=== PATIENT | female | born 1960 | race Caucasian/White ===

== ENCOUNTER 2017-12-13 23:36 | Emergency (ER) | payer SELFPAY ==
[~2017-12-13] VITALS: Ht 160 cm; Wt 86.2 kg
[~2017-12-13 23:36] MED LIST: ALBU90OI INH; ALBU90OI6 INH; AZIT250 PO; BENTYL20 MG PO; CEPH500 PO; CHLO10 PO; CIME400 PO; CIPR500 PO; CODGUAEL PO; CYCL10 PO; DOXY100 PO; DULO30 PO; FENT100TP TOP; FENT25TP TOP; HYDACE5 PO; HYDACE5325 PO; Humulin N100 UNIT/1 SC; INS70/30I SC; INS70/30PN SC; INSN100I SUBQ; INSR10I SC; INSUASPI SC; INSULANI SC; MAGCIT300 PO; MELO7.5 PO; MORP15ER PO; Novolin R100 UNIT/M SC; ONDA4 PO; OXYACE5T PO; PHENA200 PO; PRED20 PO; PROM25 PO; Percocet 5-3251 EACH PO; Prednisone20 MG PO; TRAM50 PO; Zithromax250 MG PO
[2017-12-14 00:49] LABS: BASOPHILS ABSOLUTE AUTO 0.05 K/mm3 (0.00-0.23); BASOPHILS PERCENT AUTO 1 % (0-2); EOSINOPHILS ABSOLUTE AUTO 0.15 K/mm3 (0.00-0.68); EOSINOPHILS PERCENT AUTO 1 % (0-6); Hematocrit 41.5 % (33.0-51.0); Hemoglobin 13.4 g/dL (11.5-16.0); IMMATURE GRAN ABSOLUTE AUTO 0.03 K/mm3 (0.00-0.10); IMMATURE GRAN PERCENT AUTO 0 % (0-1); LYMPHOCYTES ABSOLUTE AUTO 1.56 K/mm3 (0.84-5.20); LYMPHOCYTES PERCENT AUTO 15 % (21-46); MONOCYTES ABSOLUTE AUTO 0.54 K/mm3 (0.16-1.47); MONOCYTES PERCENT AUTO 5 % (4-13); Mean Corpuscular HGB 25.2 pg (26.0-34.0); Mean Corpuscular HGB Conc 32.3 g/dL (31.5-36.5); Mean Corpuscular Volume 78 fL (80-100); Mean Platelet Volume 9.6 fL (9.1-12.4); NEUTROPHILS ABSOLUTE AUTO 8.37 K/mm3 (1.96-9.15); NEUTROPHILS PERCENT AUTO 78 % (41-73); Platelet Count 437 K/mm3 (150-400); RDW Coefficient Variation 16.1 % (11.7-14.2); RDW Standard Deviation 45.6 fL (35.1-46.3); Red Blood Cell Count 5.32 M/mm3 (3.80-5.20)
[2017-12-14 01:09] LABS: Alanine Aminotransfer (ALT/SGP 24 U/L (12-78); Albumin, Blood 3.2 g/dL (3.4-5.0); Albumin/Globulin Ratio 0.6 (0.8-1.8); Alk Phos 134 U/L (50-136); Anion Gap 9 mmol/L (6-16); Aspartate Aminotrans (AST/SGOT 15 U/L (12-37); Bilirubin, Total 0.4 mg/dL (0.1-1.0); Blood Urea Nitrogen 5 mg/dL (8-24); Bun/Creatinine Ratio 12.1 (12.0-20.0); CO2, Blood 29 mmol/L (21-32); Calcium, Blood 9.3 mg/dL (8.5-10.1); Chloride, Blood 95 mmol/L (98-108); Creatinine, Blood 0.41 mg/dL (0.40-1.00); Globulin, Blood 5.3 g/dL (2.2-4.0); Glomerular Filtration Rate >60 (60-); Glucose, Blood 161 mg/dL (70-99); Potassium, Blood 3.7 mmol/L (3.5-5.5); Sodium, Blood 133 mmol/L (136-145); Total Protein, Blood 8.5 g/dL (6.4-8.2)
[2017-12-14 04:16] LABS: Source, Urine Clean Catch
[2017-12-14 04:18] LABS: Bilirubin, Urine Neg (Neg); Blood, Urine 1+ (Neg); Glucose Qualitative, Urine 3+ (Neg); Ketones, Urine 2+ (Neg); Leukocyte Esterase, Urine Neg (Neg); Nitrite, Urine Neg (Neg); Protein, Urine 1+ (Neg); Urobilinogen, Urine NORM (Normal)
[2017-12-14 04:23] LABS: Appearance, Urine Clear (Clear); Color, Urine Yellow (P-Yellow)
[2017-12-14 04:24] LABS: Bacteria Mod /hpf; Red Blood Cells, Urine 0-2 /hpf (0-2); Squamous Epithelial Cells Mod /hpf (Few); White Blood Cells, Urine 0-2 /hpf (0-5)
[2017-12-14] MEDS ORDERED: Zofran Odt4 MG PO (06:09)
[2017-12-14] MEDS ORDERED: Norco 5-325 Ta1 EACH PO (06:09)
[2017-12-15] MEDS ORDERED: CEPH500 PO (12:14)
[2017-12-15] MEDS ORDERED: Cleocin HCl300 MG PO ×2 (12:14→12:16)
== END 2017-12-14 06:34 | disposition home or self-care (01) ==
LOC: ER 23:36
PROVIDERS: Emergency Medicine
DX: K57.30 Diverticulosis of large intestine without perforation or abscess without bleeding (principal); E11.9 Type 2 diabetes mellitus without complications; R16.0 Hepatomegaly, not elsewhere classified; F17.210 Nicotine dependence, cigarettes, uncomplicated; Z88.0 Allergy status to penicillin; Z88.2 Allergy status to sulfonamides; Z88.8 Allergy status to other drugs, medicaments and biological substances; Z79.4 Long term (current) use of insulin
CPT/HCPCS: 36415; 74177; 80053; 81001; 83690; 85025; 87086; 96361; 96374; 96375; 96376; 99284; J2405; J3010; J7030; Q9967

== ENCOUNTER 2018-01-05 18:43 | Emergency (ER) | payer OTHER ==
[~2018-01-05] VITALS: Ht 160 cm; Wt 86.2 kg
[~2018-01-05 18:43] MED LIST changes: +Cleocin HCl300 MG PO; +Norco 5-325 Ta1 EACH PO; +Zofran Odt4 MG PO
[2018-01-05] MEDS ORDERED: Vibramycin100 MG PO (20:01)
[2018-01-05] MEDS ORDERED: Cheratussin AC118 ML PO (20:01)
== END 2018-01-05 20:06 | disposition home or self-care (01) ==
LOC: ER 18:43
DX: J18.9 Pneumonia, unspecified organism (principal); Z88.0 Allergy status to penicillin; Z88.2 Allergy status to sulfonamides; Z88.8 Allergy status to other drugs, medicaments and biological substances; Z79.899 Other long term (current) drug therapy; Z79.4 Long term (current) use of insulin; Z79.2 Long term (current) use of antibiotics; E11.9 Type 2 diabetes mellitus without complications; F32.9 Major depressive disorder, single episode, unspecified; F17.210 Nicotine dependence, cigarettes, uncomplicated
CPT/HCPCS: 71046

== ENCOUNTER 2018-03-30 22:35 | Emergency (ER) | payer OTHER ==
[~2018-03-30] VITALS: Ht 160 cm; Wt 88.5 kg
[~2018-03-30 22:35] MED LIST changes: +Cheratussin AC118 ML PO; +Vibramycin100 MG PO
[2018-03-31] MEDS ORDERED: Neurontin 300300 MG PO (01:21)
[2018-03-31] MEDS ORDERED: Naprosyn500 MG PO (01:21)
[2018-03-31] MEDS ORDERED: LIDO700A20 TOP (01:21)
== END 2018-03-31 01:26 | disposition home or self-care (01) ==
LOC: ER 22:35
DX: S39.012A Strain of muscle, fascia and tendon of lower back, initial encounter (principal); M25.551 Pain in right hip; Z88.0 Allergy status to penicillin; Z88.2 Allergy status to sulfonamides; Z88.8 Allergy status to other drugs, medicaments and biological substances; Z79.899 Other long term (current) drug therapy; X58.XXXA Exposure to other specified factors, initial encounter
CPT/HCPCS: 72100; 73502; 82947; 96372; 99283-25; J1885

== ENCOUNTER 2018-11-27 17:19 | Emergency (ER) | payer OTHER ==
[~2018-11-27] VITALS: Ht 160 cm; Wt 99.8 kg
[~2018-11-27 17:19] MED LIST changes: +LIDO700A20 TOP; +Naprosyn500 MG PO; +Neurontin 300300 MG PO
[2018-11-27] MEDS ORDERED: Percocet 5-3251 EACH PO (18:51)
== END 2018-11-27 19:17 | disposition home or self-care (01) ==
LOC: ER 17:19
DX: S22.32XA Fracture of one rib, left side, initial encounter for closed fracture (principal); F32.9 Major depressive disorder, single episode, unspecified; E11.9 Type 2 diabetes mellitus without complications; G89.29 Other chronic pain; F17.210 Nicotine dependence, cigarettes, uncomplicated; Z88.0 Allergy status to penicillin; Z88.2 Allergy status to sulfonamides; Z88.8 Allergy status to other drugs, medicaments and biological substances; Z79.4 Long term (current) use of insulin; Z79.899 Other long term (current) drug therapy; W18.30XA Fall on same level, unspecified, initial encounter
CPT/HCPCS: 71100; 99283-25; A9270-GY

== ENCOUNTER → 2020-01-16 | Outpatient (CLI) | payer OTHER ==
[2020-01-16 18:48] LABS: BASOPHILS ABSOLUTE AUTO 0.04 K/mm3 (0.00-0.23); BASOPHILS PERCENT AUTO 1 % (0-2); EOSINOPHILS ABSOLUTE AUTO 0.28 K/mm3 (0.00-0.68); EOSINOPHILS PERCENT AUTO 4 % (0-6); Hematocrit 32.1 % (33.0-51.0); Hemoglobin 9.6 g/dL (11.5-16.0); IMMATURE GRAN ABSOLUTE AUTO 0.02 K/mm3 (0.00-0.10); IMMATURE GRAN PERCENT AUTO 0 % (0-1); LYMPHOCYTES ABSOLUTE AUTO 1.65 K/mm3 (0.84-5.20); LYMPHOCYTES PERCENT AUTO 24 % (21-46); MONOCYTES ABSOLUTE AUTO 0.43 K/mm3 (0.16-1.47); MONOCYTES PERCENT AUTO 6 % (4-13); Mean Corpuscular HGB 22.1 pg (26.0-34.0); Mean Corpuscular HGB Conc 29.9 g/dL (31.5-36.5); Mean Corpuscular Volume 74 fL (80-100); Mean Platelet Volume 9.4 fL (9.1-12.4); NEUTROPHILS ABSOLUTE AUTO 4.57 K/mm3 (1.96-9.15); NEUTROPHILS PERCENT AUTO 65 % (41-73); Platelet Count 386 K/mm3 (150-400); RDW Coefficient Variation 18.2 % (11.7-14.2); RDW Standard Deviation 48.1 fL (35.1-46.3); Red Blood Cell Count 4.35 M/mm3 (3.80-5.20); White Blood Cell Count 6.99 K/mm3 (4.00-11.30)
[2020-01-16 19:00] LABS: Alanine Aminotransfer (ALT/SGP 18 U/L (12-78); Albumin, Blood 3.3 g/dL (3.4-5.0); Albumin/Globulin Ratio 0.8 (0.8-1.8); Alk Phos 143 U/L (40-126); Anion Gap 8 mmol/L (6-16); Aspartate Aminotrans (AST/SGOT 20 U/L (12-37); Bilirubin, Total 0.2 mg/dL (0.1-1.0); Blood Urea Nitrogen 8 mg/dL (8-24); Bun/Creatinine Ratio 12.5 (12.0-20.0); CO2, Blood 29 mmol/L (21-32); Calcium, Blood 8.1 mg/dL (8.5-10.1); Chloride, Blood 98 mmol/L (98-108); Creatinine, Blood 0.64 mg/dL (0.40-1.00); Globulin, Blood 4.3 g/dL (2.2-4.0); Glomerular Filtration Rate >60 (60-); Glucose, Blood 298 mg/dL (70-99); Potassium, Blood 4.3 mmol/L (3.5-5.5); Sodium, Blood 135 mmol/L (136-145); Total Protein, Blood 7.6 g/dL (6.4-8.2)
== END | disposition home or self-care (01) ==
LOC: LAB SHORT 18:45 → LAB EV 18:45
PROVIDERS: Physician Assistant
DX: E10.9 Type 1 diabetes mellitus without complications (principal)
CPT/HCPCS: 80053; 83036; 83690; 85025

== ENCOUNTER → 2020-04-30 | Outpatient (CLI) | payer OTHER ==
[~2020-04-30] MED LIST changes: +ACET325 PO; +ATIVAN0.5 MG PO; +CEFP200 PO; +CLON.1 PO; +Cymbalta30 MG PO; +GUAI600T33 PO; +HUMALOG KW100 UNIT/1 SC; +HUMULIN N100 UNIT/4 SC; +HUMULIN R100 UNIT/1 SC; -Humulin N100 UNIT/1 SC; +KLOR-CON M1010 MEQ PO; +LISI5 PO; +LOPE2C PO; +MAGNESIUM OXID500 MG PO; +NEURONTIN300 MG PO; -Novolin R100 UNIT/M SC; +OMEP20ER; +PROBIOTIC1 EA10 PO; +Seroquel Xr50 MG PO; +TRAZ50; +TRAZ50 PO
== END ==
LOC: LAB SHORT 11:20 → LAB EV 11:20
DX: N39.0 Urinary tract infection, site not specified (principal)
CPT/HCPCS: 87086

== ENCOUNTER 2020-05-30 05:32 | Day surgery (SDC) | payer OTHER ==
[~2020-05-30] VITALS: Ht 160 cm; Wt 84.0 kg
[~2020-05-30 05:32] MED LIST changes: +FLUT1DIS2; +SUBOXONE 8 MG-1 EACH SL
[2020-05-30] MEDS ORDERED: TOPROL XL25 MG PO (09:47)
[2020-05-30] MEDS ORDERED: FURO40 PO (09:48)
[2020-05-30] MEDS ORDERED: Aspir 8181 MG PO (09:49)
== END 2020-05-30 11:30 | disposition home or self-care (01) ==
LOC: MHTC 05:32
PROC: 4A023N8 Measurement of Cardiac Sampling and Pressure, Bilateral, Percutaneous Approach (ICD-10-PCS; principal; 2020-05-30)
PROC: B201YZZ Plain Radiography of Multiple Coronary Arteries using Other Contrast (ICD-10-PCS; principal; 2020-05-30)
DX: I25.10 Atherosclerotic heart disease of native coronary artery without angina pectoris (principal); I27.20 Pulmonary hypertension, unspecified; E11.9 Type 2 diabetes mellitus without complications; E78.5 Hyperlipidemia, unspecified; J44.9 Chronic obstructive pulmonary disease, unspecified; F32.9 Major depressive disorder, single episode, unspecified; F17.210 Nicotine dependence, cigarettes, uncomplicated; E78.00 Pure hypercholesterolemia, unspecified; Z79.4 Long term (current) use of insulin; Z88.1 Allergy status to other antibiotic agents; Z88.0 Allergy status to penicillin; Z88.2 Allergy status to sulfonamides; Z79.899 Other long term (current) drug therapy; I08.3 Combined rheumatic disorders of mitral, aortic and tricuspid valves; M19.90 Unspecified osteoarthritis, unspecified site; G43.909 Migraine, unspecified, not intractable, without status migrainosus; M79.7 Fibromyalgia; D64.9 Anemia, unspecified; E03.9 Hypothyroidism, unspecified; F11.10 Opioid abuse, uncomplicated; D32.9 Benign neoplasm of meninges, unspecified
CPT/HCPCS: 76937; 82947; 93460; 99152; C1769; C1894; J1644; J2250; J3010; J7030; J7050; Q9967

== ENCOUNTER → 2020-07-16 | Outpatient (CLI) | payer OTHER ==
[~2020-07-16] MED LIST changes: +Aspir 8181 MG PO; +FURO40 PO; +TOPROL XL25 MG PO
[2020-07-16 18:40] LABS: BASOPHILS ABSOLUTE AUTO 0.04 K/mm3 (0.00-0.23); BASOPHILS PERCENT AUTO 1 % (0-2); EOSINOPHILS ABSOLUTE AUTO 0.21 K/mm3 (0.00-0.68); EOSINOPHILS PERCENT AUTO 3 % (0-6); Hematocrit 28.3 % (33.0-51.0); IMMATURE GRAN ABSOLUTE AUTO 0.03 K/mm3 (0.00-0.10); IMMATURE GRAN PERCENT AUTO 0 % (0-1); LYMPHOCYTES ABSOLUTE AUTO 1.61 K/mm3 (0.84-5.20); LYMPHOCYTES PERCENT AUTO 22 % (21-46); MONOCYTES ABSOLUTE AUTO 0.61 K/mm3 (0.16-1.47); MONOCYTES PERCENT AUTO 8 % (4-13); Mean Corpuscular HGB 19.1 pg (26.0-34.0); Mean Corpuscular HGB Conc 28.3 g/dL (31.5-36.5); Mean Corpuscular Volume 68 fL (80-100); Mean Platelet Volume 8.7 fL (9.1-12.4); NEUTROPHILS ABSOLUTE AUTO 4.92 K/mm3 (1.96-9.15); NEUTROPHILS PERCENT AUTO 66 % (41-73); Platelet Count 462 K/mm3 (150-400); RDW Coefficient Variation 18.1 % (11.7-14.2); Red Blood Cell Count 4.19 M/mm3 (3.80-5.20); White Blood Cell Count 7.42 K/mm3 (4.00-11.30)
[2020-07-16 19:35] LABS: Alanine Aminotransfer (ALT/SGP 41 U/L (12-78); Albumin, Blood 3.5 g/dL (3.4-5.0); Albumin/Globulin Ratio 0.7 (0.8-1.8); Alk Phos 220 U/L (50-136); Anion Gap 5 mmol/L (6-16); Aspartate Aminotrans (AST/SGOT 38 U/L (12-37); Bilirubin, Total 0.2 mg/dL (0.1-1.0); Blood Urea Nitrogen 12 mg/dL (8-24); CO2, Blood 32 mmol/L (21-32); Calcium, Blood 9.2 mg/dL (8.5-10.1); Chloride, Blood 94 mmol/L (98-108); Creatinine, Blood 0.52 mg/dL (0.40-1.00); Globulin, Blood 4.7 g/dL (2.2-4.0); Glomerular Filtration Rate >60 (60-); Glucose, Blood 275 mg/dL (70-99); Sodium, Blood 131 mmol/L (136-145); Total Protein, Blood 8.2 g/dL (6.4-8.2)
== END ==
LOC: LAB EV 18:33 → LAB SHORT 18:33
PROVIDERS: Physician Assistant
DX: N18.30 Chronic kidney disease, stage 3 unspecified (principal); D63.1 Anemia in chronic kidney disease; R59.1 Generalized enlarged lymph nodes
CPT/HCPCS: 36415; 80053; 85025

== ENCOUNTER 2020-09-04 07:00 | Day surgery (SDC) | payer OTHER ==
[~2020-09-04] VITALS: Ht 160 cm; Wt 96.1 kg
[~2020-09-04 07:00] MED LIST changes: +BISOPROLOL-HCT1 EACH PO; +CYMBALTA30 MG PO; +FURO20 PO; +MELA3 PO; +MULTIPLE VITAM1 EACH PO; +POTASSIUM GLUCO99 M1 PO
[2020-09-04] MEDS ORDERED: CIME400 PO (07:16)
== END 2020-09-04 09:20 | disposition home or self-care (01) ==
LOC: ORSCSDS 07:00
PROVIDERS: Ophthalmology
PROC: 08RJ3JZ Replacement of Right Lens with Synthetic Substitute, Percutaneous Approach (ICD-10-PCS; principal; 2020-09-04 08:00)
DX: H25.11 Age-related nuclear cataract, right eye (principal); I10 Essential (primary) hypertension; E78.5 Hyperlipidemia, unspecified; J44.9 Chronic obstructive pulmonary disease, unspecified; F17.210 Nicotine dependence, cigarettes, uncomplicated; G47.33 Obstructive sleep apnea (adult) (pediatric); I25.10 Atherosclerotic heart disease of native coronary artery without angina pectoris; I25.2 Old myocardial infarction; E10.69 Type 1 diabetes mellitus with other specified complication; Z79.4 Long term (current) use of insulin; Z79.899 Other long term (current) drug therapy
CPT/HCPCS: 82947; J2001; J2250; J3010; J3301; J7040; V2632

== ENCOUNTER 2020-10-11 16:45 | Emergency (ER) | payer OTHER ==
[~2020-10-11] VITALS: Ht 160 cm; Wt 98.0 kg
[~2020-10-11 16:45] MED LIST changes: +HUMULIN N100 UNIT/1 SC; -OMEP20ER; +OMEP20ER PO
[2021-01-22] MEDS ORDERED: BISOPROLOL-HCT1 EACH PO (11:25)
[2021-01-22] MEDS ORDERED: ASPIR 8181 M1 PO (11:25)
[2021-01-22] MEDS ORDERED: CIME400 PO (11:26)
[2021-01-22] MEDS ORDERED: FAMO20 PO (11:27)
[2021-01-22] MEDS ORDERED: BENADRYL25 MG PO (11:27)
[2021-01-22] MEDS ORDERED: FURO20 PO (11:29)
[2021-01-22] MEDS ORDERED: HUMULIN R100 UNIT/2 SC (11:30)
[2021-01-22] MEDS ORDERED: LISI20 PO (11:30)
[2021-01-22] MEDS ORDERED: PSEUDOEPHEDRINE30 M1 PO (11:33)
== END 2020-10-11 21:53 | disposition home or self-care (01) ==
LOC: ER 16:45
DX: D50.9 Iron deficiency anemia, unspecified (principal); J44.9 Chronic obstructive pulmonary disease, unspecified; E78.5 Hyperlipidemia, unspecified; I10 Essential (primary) hypertension; E11.40 Type 2 diabetes mellitus with diabetic neuropathy, unspecified; Z79.4 Long term (current) use of insulin; Z79.82 Long term (current) use of aspirin; Z79.899 Other long term (current) drug therapy; Z88.0 Allergy status to penicillin; Z88.1 Allergy status to other antibiotic agents; Z88.2 Allergy status to sulfonamides
CPT/HCPCS: 36415; 86850; 86900; 86901; 93005; 93010; 99283-25

== ENCOUNTER 2020-10-16 00:11 | Day surgery (SDC) | payer OTHER ==
--- NOTE | 2020-10-16 07:57 | NUR ---
INSP WHEEZE RUL PRE TRANSFUSION, DENIES SOB. PT SMOKES CIGS
[2020-10-16] MEDS ORDERED: ERYT.5TO RIGHTEYE (08:18)
[2020-10-16] MEDS ORDERED: FERSU300 PO (08:19)
[2020-10-16] MEDS ORDERED: KETOROLAC TROMET5 M3 RIGHTEYE (08:23)
[2020-10-16] MEDS ORDERED: OCUFLOX5 M3 RIGHTEYE (08:28)
[2020-10-16] MEDS ORDERED: PREDNISOLO15 MG/5 ML PO (08:31)
[2020-10-16] MEDS ORDERED: ASCO500 PO (08:32)
[2020-10-16] MEDS ORDERED: MAGCIT300 (08:33)
[2020-10-16] MEDS ORDERED: MAGNESIUM CITR100 MG PO (08:34)
[2020-10-16] MEDS ORDERED: NARCAN4 M1 (08:36)
[2020-10-16] MEDS ORDERED: Glucagon Emergen1 MG (08:37)
[2021-01-22] MEDS ORDERED: ASPIR 8181 M1 PO (11:25)
[2021-01-22] MEDS ORDERED: BISOPROLOL-HCT1 EACH PO (11:25)
[2021-01-22] MEDS ORDERED: CIME400 PO (11:26)
[2021-01-22] MEDS ORDERED: BENADRYL25 MG PO (11:27)
[2021-01-22] MEDS ORDERED: FAMO20 PO (11:27)
[2021-01-22] MEDS ORDERED: FURO20 PO (11:29)
[2021-01-22] MEDS ORDERED: LISI20 PO (11:30)
[2021-01-22] MEDS ORDERED: HUMULIN R100 UNIT/2 SC (11:30)
[2021-01-22] MEDS ORDERED: PSEUDOEPHEDRINE30 M1 PO (11:33)
== END 2020-10-16 10:07 | disposition home or self-care (01) ==
LOC: ATC 00:11
DX: D50.9 Iron deficiency anemia, unspecified (principal); I27.20 Pulmonary hypertension, unspecified; M79.7 Fibromyalgia; J44.9 Chronic obstructive pulmonary disease, unspecified; F41.9 Anxiety disorder, unspecified; F32.9 Major depressive disorder, single episode, unspecified; G43.909 Migraine, unspecified, not intractable, without status migrainosus; E11.3399 Type 2 diabetes mellitus with moderate nonproliferative diabetic retinopathy without macular edema, unspecified eye; E11.22 Type 2 diabetes mellitus with diabetic chronic kidney disease; E11.42 Type 2 diabetes mellitus with diabetic polyneuropathy; I12.9 Hypertensive chronic kidney disease with stage 1 through stage 4 chronic kidney disease, or unspecified chronic kidney disease; N18.30 Chronic kidney disease, stage 3 unspecified; E66.01 Morbid (severe) obesity due to excess calories; F17.200 Nicotine dependence, unspecified, uncomplicated; I25.2 Old myocardial infarction; Z88.1 Allergy status to other antibiotic agents; Z88.0 Allergy status to penicillin; Z88.2 Allergy status to sulfonamides; Z79.4 Long term (current) use of insulin
CPT/HCPCS: 36415; 36430; 86850; 86900; 86901; 86923; J7050; P9016

== ENCOUNTER 2020-10-29 07:39 | Day surgery (SDC) | payer OTHER ==
[~2020-10-29] VITALS: Ht 160 cm; Wt 97.6 kg
[~2020-10-29 07:39] MED LIST changes: +ASCO500 PO; +ERYT.5TO RIGHTEYE; +FERSU300 PO; +Glucagon Emergen1 MG; +KETOROLAC TROMET5 M3 RIGHTEYE; +MAGCIT300; +MAGNESIUM CITR100 MG PO; +NARCAN4 M1; +OCUFLOX5 M3 RIGHTEYE; +PREDNISOLO15 MG/5 ML PO
[2021-01-22] MEDS ORDERED: BISOPROLOL-HCT1 EACH PO (11:25)
[2021-01-22] MEDS ORDERED: ASPIR 8181 M1 PO (11:25)
[2021-01-22] MEDS ORDERED: CIME400 PO (11:26)
[2021-01-22] MEDS ORDERED: FAMO20 PO (11:27)
[2021-01-22] MEDS ORDERED: BENADRYL25 MG PO (11:27)
[2021-01-22] MEDS ORDERED: FURO20 PO (11:29)
[2021-01-22] MEDS ORDERED: HUMULIN R100 UNIT/2 SC (11:30)
[2021-01-22] MEDS ORDERED: LISI20 PO (11:30)
[2021-01-22] MEDS ORDERED: PSEUDOEPHEDRINE30 M1 PO (11:33)
== END 2020-10-29 10:00 | disposition home or self-care (01) ==
LOC: ORSCSDS 07:39
PROVIDERS: Ophthalmology
PROC: 08RK3JZ Replacement of Left Lens with Synthetic Substitute, Percutaneous Approach (ICD-10-PCS; principal; 2020-10-29 08:45)
DX: H25.12 Age-related nuclear cataract, left eye (principal); J45.909 Unspecified asthma, uncomplicated; F32.9 Major depressive disorder, single episode, unspecified; E78.00 Pure hypercholesterolemia, unspecified; E11.36 Type 2 diabetes mellitus with diabetic cataract; E66.9 Obesity, unspecified; Z68.38 Body mass index [BMI] 38.0-38.9, adult; Z79.82 Long term (current) use of aspirin; Z79.4 Long term (current) use of insulin; Z79.899 Other long term (current) drug therapy; F17.210 Nicotine dependence, cigarettes, uncomplicated
CPT/HCPCS: 82947; J2001; J2250; J3010; J3301; J7040; J7799; V2632

== ENCOUNTER 2020-11-14 17:04 | Inpatient (IN) | payer OTHER ==
[~2020-11-14] VITALS: Ht 167.6 cm; Wt 97.1 kg
[2020-11-14 17:40] LABS: Source, Urine Clean Catch
[2020-11-14 17:42] LABS: BASOPHILS ABSOLUTE AUTO 0.03 K/mm3 (0.00-0.23); BASOPHILS PERCENT AUTO 0 % (0-2); EOSINOPHILS ABSOLUTE AUTO 0.06 K/mm3 (0.00-0.68); EOSINOPHILS PERCENT AUTO 1 % (0-6); IMMATURE GRAN ABSOLUTE AUTO 0.03 K/mm3 (0.00-0.10); IMMATURE GRAN PERCENT AUTO 0 % (0-1); LYMPHOCYTES ABSOLUTE AUTO 1.23 K/mm3 (0.84-5.20); LYMPHOCYTES PERCENT AUTO 14 % (21-46); MONOCYTES ABSOLUTE AUTO 0.35 K/mm3 (0.16-1.47); MONOCYTES PERCENT AUTO 4 % (4-13); Mean Corpuscular HGB 20.2 pg (26.0-34.0); Mean Corpuscular HGB Conc 28.6 g/dL (31.5-36.5); Mean Corpuscular Volume 71 fL (80-100); NEUTROPHILS ABSOLUTE AUTO 7.17 K/mm3 (1.96-9.15); NEUTROPHILS PERCENT AUTO 81 % (41-73); Platelet Count 364 K/mm3 (150-400); RDW Coefficient Variation 31.3 % (11.7-14.2); RDW Standard Deviation 76.3 fL (35.1-46.3); Red Blood Cell Count 4.95 M/mm3 (3.80-5.20); White Blood Cell Count 8.87 K/mm3 (4.00-11.30)
[2020-11-14 17:43] LABS: Appearance, Urine Clear (Clear); Bilirubin, Urine Neg (Neg); Blood, Urine Neg (Neg); Color, Urine Yellow (P-Yellow); Glucose Qualitative, Urine 2+ (Neg); Ketones, Urine Neg (Neg); Leukocyte Esterase, Urine Neg (Neg); Nitrite, Urine Neg (Neg); Protein, Urine Neg (Neg); Urobilinogen, Urine NORM (Normal)
[2020-11-14 18:05] LABS: U Amphetamine Screen Not Detected; U Barbituate Screen Not Detected; U Benzodiazapine Screen DETECTED; U Buprenorphine Screen DETECTED; U Cannabinoids Screen Not Detected; U Cocaine Screen Not Detected; U Methadone Screen Not Detected; U Methamphetamine Screen Not Detected; U Opiates Screen Not Detected; U Phencyclidine Screen Not Detected
[2020-11-14 18:06] LABS: U Oxycodone Screen Not Detected; U Propoxyphene Screen Not Detected
[2020-11-14 18:07] LABS: Alanine Aminotransfer (ALT/SGP 43 U/L (12-78); Albumin, Blood 3.3 g/dL (3.4-5.0); Albumin/Globulin Ratio 0.8 (0.8-1.8); Alk Phos 132 U/L (50-136); Anion Gap 6 mmol/L (6-16); Aspartate Aminotrans (AST/SGOT 38 U/L (12-37); Bilirubin, Total 0.5 mg/dL (0.1-1.0); Blood Urea Nitrogen 8 mg/dL (8-24); Bun/Creatinine Ratio 14.1 (12.0-20.0); CO2, Blood 29 mmol/L (21-32); Calcium, Blood 9.1 mg/dL (8.5-10.1); Chloride, Blood 94 mmol/L (98-108); Creatinine, Blood 0.57 mg/dL (0.40-1.00); Ethanol (Alcohol), Blood, Med <3 mg/dL; Globulin, Blood 4.4 g/dL (2.2-4.0); Glomerular Filtration Rate >60 (60-); Glucose, Blood 249 mg/dL (70-99); Potassium, Blood 4.2 mmol/L (3.5-5.5); Sodium, Blood 129 mmol/L (136-145); Total Protein, Blood 7.7 g/dL (6.4-8.2)
[2020-11-14] MEDS ORDERED: LISI20 PO (18:35)
--- NOTE | 2020-11-14 21:00 | NUR ---
GAUDENCIO IS BEING ADMITTED TO 348 FOR ISCHEMIC CVA. SHE ARRIVED TO THE FLOOR VIA GURNEY WITH DAUGHTER AT SIDE. TRANSFERRED TO BED USING SLIDER SHEET. GAUDENCIO IS ALERT ORIENTED TO SELF, FAMILY AND SURROUNDINGS BUT HAS DIFFICULT TIME SAYING THE WORDS. SHE WAS UNABLE TO STATE FULL NAME AND . SPEECH IS GARBLED, SLURRED AT TIMES, WORD SALAD. OCCATIONALLY IT DOES CLEAR AND SHE CAN SPEAK NORMAL. IT STARTED WITH A MIGRAINE AT LEAST THEY THOUGHT 2 DAYS AGO. THE NEXT DAY SLURRED SPEECH STARTED. MIGRAINE WAS ON THE LEFT SIDE OF THE FACE, DID REPORT SOME BLURRED VISION IN THE LEFT EYE. FACE IS SYMMETRIC, TONGUE IS CENTERED. SMILE IS SYMMETRIC. NO N/T. NO PAIN. ABLE TO SWALLOW, COUGH. DOES HAVE HISTORY OF SWALLOWING PROBLEMS. MEMBRANES DRY. HISTORY OF ANEMIA RECENTLY, HAD BLOOD TRANSFUSION ABOUT A WEEK OR SO AGO. DIECAST MACHINE OPERATOR ARE SLIGHT WEAKER ON THE RIGHT, NO DEFICIT TO MOTER OR SENSATION. SLIGHTLY WEAK ON THE RLE THEN LLE. AGAIN NO DEFICIT TO MOTER OR SENSATION. DID NOT HAVE PATIENT STAND. SKIN DOES HAVE OLD SCARS UP AND DOWN BLE ON BACK. REDNESS IN CREASE OF GROIN ONLY. VS WNL, AFEBRILE. FULL CODE VERFIED. ARRIVED TO SEE THE PATIENT. CALL LIGHT IS IN REACH. WILL CONTINUE TO MONITOR. WEAK ON THE RLE THEN LLE. AGAIN NO DEFICIT TO MOTER OR SENSATION.
--- NOTE | 2020-11-14 22:08 | NUR ---
DR. MAGALLANES AT BEDSIDE. AND DAUGHTER AT BEDSIDE WELL.
--- NOTE | 2020-11-14 23:30 | NUR ---
US FOR CAROID ARTERY IN ROOM CURRENTLY PERFORMING TEST.
[2020-11-15 05:00] LABS: BASOPHILS ABSOLUTE AUTO 0.02 K/mm3 (0.00-0.23); BASOPHILS PERCENT AUTO 0 % (0-2); EOSINOPHILS ABSOLUTE AUTO 0.11 K/mm3 (0.00-0.68); EOSINOPHILS PERCENT AUTO 1 % (0-6); Hematocrit 36.8 % (33.0-51.0); Hemoglobin 10.3 g/dL (11.5-16.0); IMMATURE GRAN ABSOLUTE AUTO 0.04 K/mm3 (0.00-0.10); IMMATURE GRAN PERCENT AUTO 0 % (0-1); LYMPHOCYTES ABSOLUTE AUTO 1.82 K/mm3 (0.84-5.20); LYMPHOCYTES PERCENT AUTO 20 % (21-46); MONOCYTES ABSOLUTE AUTO 0.57 K/mm3 (0.16-1.47); MONOCYTES PERCENT AUTO 6 % (4-13); Mean Corpuscular Volume 71 fL (80-100); Mean Platelet Volume 9.2 fL (9.1-12.4); NEUTROPHILS ABSOLUTE AUTO 6.73 K/mm3 (1.96-9.15); NEUTROPHILS PERCENT AUTO 73 % (41-73); Platelet Count 352 K/mm3 (150-400); RDW Coefficient Variation 31.8 % (11.7-14.2); RDW Standard Deviation 79.3 fL (35.1-46.3); Red Blood Cell Count 5.16 M/mm3 (3.80-5.20); White Blood Cell Count 9.29 K/mm3 (4.00-11.30)
--- NOTE | 2020-11-15 05:32 | NUR ---
SHIFT SUMMARY: GAUDENCIO WAS ADMITTED FOR ISCHEMIC CVA THAT STARTED 2 DAYS AGO. SLURRED SPEECH, GARBLED AT TIMES BUT HAS CLEARED UP SOME T/O NIGHT. STILL HAS DIFFICULTY FINDING WORDS, AND COMPERHENDING THINGS. STILL UNABLE TO STATE WHERE SHE IS AT, WHAT HAPPENED, BUT WAS ABLE TO STATE NAME, , AND DATE. JUST SLOW RESPONSE. NO SWALLOWING DIFFICULTIES AT THIS TIME. POWELL RESOLVED. STILL HAS MILD WEAKNESS ON THE RIGHT SIDE WITH DRESS OPERATOR AND DORSAL FLEXTION. VS HAVE BEEN WNL. IVF HAVE BEEN INFUSING AT 75ML/HR. RECEIVED CRITICAL LAB THIS AM, GLUCOSE WAS DOWN TO 46. SHE WAS AWAKE BUT WAS HAVING DIFFICULT TIME CONCENTRATING OR COMPERHENDING, SPEECH SLURRED. SAT HER UP AND GOT HER SOME ORANGE JUICE, CRACKERS AND CHEESE. WILL RECHECK HER BLOOD SUGARS. SLEPT WELL T/O THE NIGHT. SHE DID HAVE HER US OF CARODID ARTERIES. WILL HAVE ECHO TODAY. WILL CONTINUE TO MONITOR TILL DAYSHIFT ARRIVES. CALL LIGHT IS IN REACH, BED ALARM IS ON.
[2020-11-15 05:33] LABS: Alanine Aminotransfer (ALT/SGP 40 U/L (12-78); Albumin/Globulin Ratio 0.7 (0.8-1.8); Alk Phos 117 U/L (50-136); Anion Gap 7 mmol/L (6-16); Aspartate Aminotrans (AST/SGOT 36 U/L (12-37); Bilirubin, Total 0.6 mg/dL (0.1-1.0); Blood Urea Nitrogen 7 mg/dL (8-24); CO2, Blood 28 mmol/L (21-32); Calcium, Blood 8.8 mg/dL (8.5-10.1); Chloride, Blood 97 mmol/L (98-108); Creatinine, Blood 0.58 mg/dL (0.40-1.00); Globulin, Blood 4.5 g/dL (2.2-4.0); Glomerular Filtration Rate >60 (60-); Potassium, Blood 3.6 mmol/L (3.5-5.5); Sodium, Blood 132 mmol/L (136-145); Total Protein, Blood 7.5 g/dL (6.4-8.2)
[2020-11-15 05:56] LABS: Glucose, Blood 46 mg/dL (70-99)
--- NOTE | 2020-11-15 17:26 | NUR ---
SUMMARY PT SITTING UP IN THE CHAIR AT THE BEDSIDE, PT WAS HOPEFUL TO GO HOME, PT STAYING PER DR DIAZ, PT WORKED WITH PT/OT/ST TODAY, PT STILL HAVING EXPRESSIVE APHASIA AND SOME RECEPTIVE APHASIA, STRENGTH EQUAL AND NO FACIAL DROOP NOTED, FAMILY HAS BEEN IN TO VISIT, POSSIBLE MRI TOMORROW, VSS, PT PLEASANT AND COOPERATIVE WITH CARE, WILL CONT TO MONITOR
--- NOTE | 2020-11-15 19:41 | NUR ---
ASSUMPTION OF CARE. AOX3, ABLE TO STATE WHERE SHE IS AND WHO SHE IS. NO HEADACHE TODAY, NO CHEST PAIN, NO N/T. SWALLOWING IS NORMAL. NO VISION CHANGES. STREGNTH IS NORMAL. IS CONTIENT. SITTING UP IN CHAIR. ONLY DEFICIT IS EXPRESSIVE AND RECESSIVE APHAGIA THAT IS MINIMAL. SHE IS TALKING MORE CLEARLY THEN SHE WAS LAST NIGHT. BUMBED THAT SHE DID NOT GO HOME TODAY BUT ALSO UNDERSTANDS WHY SHE IS HERE. DENIES ANY NEEDS AT THIS TIME. CALL LIGHT IS IN REACH.
--- NOTE | 2020-11-16 05:08 | NUR ---
SHIFT SUMMARY: GAUDENCIO IS AOX3, WEAKNESS TO RIGHT SIDE HAS RESOLVED. STILL HAS SOME EXPRESSIVE AND RECESSIVE APHAGIA BUT THAT IS ALSO BETTER THEN WHEN I ADMITTED HER. SHE IS ABLE TO GET HER NEEDS NOTED. IS ABLE TO GET UP INDEPENDENTLY IN THE ROOM. TELE REMAINS SINUS. VS WNL, AFEBRILE. BLOOD SUGAR LAST NIGHT WAS IN THE 200'S. SHE IS HOPING TO GO HOME TODAY. NO OTHER CHANGES TO NOTE. CALL LIGHT REMAINS IN REACH.
[2020-11-16 05:42] LABS: CHOL/HDL RATIO 3.4; Cholesterol 188 mg/dL (50-200); HDL Cholesterol 56 mg/dL (>39); Low Density Lipoprotein Chol 113 mg/dL (0-110); Triglycerides 94 mg/dL (30-160); Very Low Density Lipoprot Chol 18 mg/dL (6-32)
--- NOTE | 2020-11-16 09:14 | NUR ---
CALLED DR MARCH- PT BG WAS 98 THIS MORNING SHE DID EAT BREAKFAST HOWEVER SHE HAS A SCHEDULED DOSE OF HUMILIN R 45 UNITS SHE RECIEVED 20 UNITS LAST NIGHT WHEN BG WAS 281. CURRENT BG 98. ORDER RECIEVED TO HOLD THIS DOSE.
[2020-11-16] MEDS ORDERED: ATOR80 PO (13:02)
[2020-11-16] MEDS ORDERED: Plavix75 MG PO (13:02)
--- NOTE | 2020-11-16 15:22 | NUR ---
PT HAS ORDER TO DISCHARGE DCING TELE AND IV FAST FOOD MANAGER COMPLETING THE DC PAPERWORK CURRENTLY SPOUSE AT THE BEDSIDE FOR DC TEACHING. PT IS [facility] SO THEY WILL CALL HER WITH FOLLOW UP APPOINTMENT TIMES. LIZABETH RESULTS ARE IN, DISCHARGE ORDERS ARE IN. WILL EDUCATE THE PT AND HER SPOUSE THEN STAFF WILL ESCORT OUT VIA WC.
--- NOTE | 2020-11-16 15:57 | NUR ---
DISCHARGE NOTE- PT WAS GIVEN VERBAL AND WRITTEN DISCHARGE INSTRUCTIONS AND ACKNOWLEDGED UNDERSTANDING OF THEM. IV AND TELE DC'D PRIOR TO DISCHARGE SPOUSE PRESENT FOR DISCHARGE TEACHING. PT ESCORTED OUT VIA WC BY STAFF MEMBER. NO S&S OF DISTRESS NOTED AT THE TIME OF DISCHARGE.
[2021-01-22] MEDS ORDERED: ASPIR 8181 M1 PO (11:25)
[2021-01-22] MEDS ORDERED: BISOPROLOL-HCT1 EACH PO (11:25)
[2021-01-22] MEDS ORDERED: CIME400 PO (11:26)
[2021-01-22] MEDS ORDERED: FAMO20 PO (11:27)
[2021-01-22] MEDS ORDERED: BENADRYL25 MG PO (11:27)
[2021-01-22] MEDS ORDERED: FURO20 PO (11:29)
[2021-01-22] MEDS ORDERED: HUMULIN R100 UNIT/2 SC (11:30)
[2021-01-22] MEDS ORDERED: LISI20 PO (11:30)
[2021-01-22] MEDS ORDERED: PSEUDOEPHEDRINE30 M1 PO (11:33)
== END 2020-11-16 15:54 | disposition home health service (06) | DRG 65 ==
LOC: ER 17:04 → MEDS 19:08 → ER 19:08 → MEDS 19:08
PROVIDERS: Internal Medicine; Student in an Organized Health Care Education/Training Program; ADMIT Internal Medicine
DX: I63.9 Cerebral infarction, unspecified (principal); E87.1 Hypo-osmolality and hyponatremia; Z68.41 Body mass index [BMI] 40.0-44.9, adult; K21.9 Gastro-esophageal reflux disease without esophagitis; E78.5 Hyperlipidemia, unspecified; I10 Essential (primary) hypertension; E66.01 Morbid (severe) obesity due to excess calories; J84.10 Pulmonary fibrosis, unspecified; E11.65 Type 2 diabetes mellitus with hyperglycemia; E11.319 Type 2 diabetes mellitus with unspecified diabetic retinopathy without macular edema; E11.21 Type 2 diabetes mellitus with diabetic nephropathy; E11.40 Type 2 diabetes mellitus with diabetic neuropathy, unspecified; I27.20 Pulmonary hypertension, unspecified; D64.9 Anemia, unspecified; F41.8 Other specified anxiety disorders; F17.210 Nicotine dependence, cigarettes, uncomplicated; Z88.0 Allergy status to penicillin; Z88.2 Allergy status to sulfonamides; Z88.8 Allergy status to other drugs, medicaments and biological substances; Z79.4 Long term (current) use of insulin; Z79.52 Long term (current) use of systemic steroids; Z68.34 Body mass index [BMI] 34.0-34.9, adult
CPT/HCPCS: 36415; 70450; 70496; 70498; 70553; 80053; 80061; 81003; 82947; 83036; 85025; 92523; 92610; 93005; 93010; 93308; 93880; 94640; 94664; 94760; 96372; 97116; 97162; 97165; 97530; 99285-25; A9270; A9579; G0378; G0480; J1650; J1815; J7030; P9612; Q9967

== ENCOUNTER 2021-01-31 23:35 | Observation (INO) | payer OTHER ==
[~2021-01-31] VITALS: Ht 160 cm; Wt 102.7 kg
[~2021-01-31 23:35] MED LIST changes: +ASPIR 8181 M1 PO; +ATOR80 PO; +BENADRYL25 MG PO; +FAMO20 PO; +HUMULIN R100 UNIT/2 SC; +LISI20 PO; +PSEUDOEPHEDRINE30 M1 PO; +Plavix75 MG PO
[2021-02-01 00:28] LABS: BASOPHILS ABSOLUTE AUTO 0.07 K/mm3 (0.00-0.23); BASOPHILS PERCENT AUTO 0 % (0-2); EOSINOPHILS PERCENT AUTO 0 % (0-6); Hematocrit 39.1 % (33.0-51.0); Hemoglobin 12.6 g/dL (11.5-16.0); IMMATURE GRAN ABSOLUTE AUTO 0.27 K/mm3 (0.00-0.10); IMMATURE GRAN PERCENT AUTO 1 % (0-1); LYMPHOCYTES ABSOLUTE AUTO 1.22 K/mm3 (0.84-5.20); LYMPHOCYTES PERCENT AUTO 4 % (21-46); MONOCYTES ABSOLUTE AUTO 0.96 K/mm3 (0.16-1.47); MONOCYTES PERCENT AUTO 3 % (4-13); Mean Corpuscular HGB 25.6 pg (26.0-34.0); Mean Corpuscular HGB Conc 32.2 g/dL (31.5-36.5); Mean Corpuscular Volume 80 fL (80-100); Mean Platelet Volume 9.4 fL (9.1-12.4); NEUTROPHILS ABSOLUTE AUTO 26.76 K/mm3 (1.96-9.15); NEUTROPHILS PERCENT AUTO 91 % (41-73); Platelet Count 503 K/mm3 (150-400); RDW Coefficient Variation 18.6 % (11.7-14.2); RDW Standard Deviation 52.9 fL (35.1-46.3); Red Blood Cell Count 4.92 M/mm3 (3.80-5.20); White Blood Cell Count 29.38 K/mm3 (4.00-11.30)
[2021-02-01 00:47] LABS: Albumin, Blood 3.5 g/dL (3.4-5.0); Albumin/Globulin Ratio 0.7 (0.8-1.8); Bilirubin, Total 0.4 mg/dL (0.1-1.0); Bun/Creatinine Ratio 12.3 (12.0-20.0); Calcium, Blood 8.8 mg/dL (8.5-10.1); Creatinine, Blood 2.35 mg/dL (0.40-1.00); Globulin, Blood 4.7 g/dL (2.2-4.0); Total Protein, Blood 8.2 g/dL (6.4-8.2)
[2021-02-01 04:52] LABS: Adenovirus F 40/41 Not Detected (NOT DETECT); Astrovirus Not Detected (NOT DETECT); Campylobacter Sp Not Detected (NOT DETECT); Cryptosporidium Not Detected (NOT DETECT); Cyclospora Cayetanensis Not Detected (NOT DETECT); E. Coli O157 Not Detected (NOT DETECT); Entamoeba Histolytica Not Detected (NOT DETECT); Enteroaggregative E. coli-EAEC Not Detected (NOT DETECT); Enteropathogenic E. coli-EPEC Not Detected (NOT DETECT); Enterotoxigenic E. coli-ETEC Not Detected (NOT DETECT); Giardia Lamblia Not Detected (NOT DETECT); Norovirus GI/GII Not Detected (NOT DETECT); Plesiomonas Shigelloides Not Detected (NOT DETECT); Rotavirus A Not Detected (NOT DETECT); Salmonella Sp Not Detected (NOT DETECT); Sapovirus Not Detected (NOT DETECT); Shiga Toxin-prod E. coli-STEC Not Detected (NOT DETECT); Shigella/Enteroin E. coli-EIEC Not Detected (NOT DETECT); Vibrio Cholerae Not Detected (NOT DETECT); Vibrio Sp Not Detected (NOT DETECT); Yersinia Enterocolitica Not Detected (NOT DETECT)
--- NOTE | 2021-02-01 05:59 | NUR ---
SHIFT SUMMARY: PT ARRIVED TO MEDICAL FLOOR FROM ED THIS MORNING. AAOX3. LETHARGIC, REPEATEDLY FALLING ASLEEP WHILE TALKING AND BEING SPOKEN TO. ASSISTED FROM GURNEY TO BED W/ 1 ASSIST, WEAK AND ONLY ABLE TO TAKE A FEW STEPS. PT STRUGGLING W/ FINDING WORDS- STATES THIS IS BASELINE SINCE RECENT CVA. USING BEDSIDE COMMODE W/ 1 ASSIST. LIQUID PINK COLORED STOOL. IV FLUIDS INFUSING PER ORDERS. BED LOW, BED ALARM ON. CALL LIGHT EXPLAINED AND PLACED WITHIN REACH.
[2021-02-01 08:05] LABS: BASOPHILS ABSOLUTE AUTO 0.03 K/mm3 (0.00-0.23); BASOPHILS PERCENT AUTO 0 % (0-2); EOSINOPHILS ABSOLUTE AUTO 0.01 K/mm3 (0.00-0.68); EOSINOPHILS PERCENT AUTO 0 % (0-6); Hematocrit 37.8 % (33.0-51.0); IMMATURE GRAN ABSOLUTE AUTO 0.07 K/mm3 (0.00-0.10); IMMATURE GRAN PERCENT AUTO 0 % (0-1); LYMPHOCYTES ABSOLUTE AUTO 0.53 K/mm3 (0.84-5.20); LYMPHOCYTES PERCENT AUTO 2 % (21-46); MONOCYTES ABSOLUTE AUTO 0.93 K/mm3 (0.16-1.47); MONOCYTES PERCENT AUTO 4 % (4-13); Mean Corpuscular HGB 25.4 pg (26.0-34.0); Mean Corpuscular HGB Conc 31.7 g/dL (31.5-36.5); Mean Corpuscular Volume 80 fL (80-100); Mean Platelet Volume 9.3 fL (9.1-12.4); NEUTROPHILS ABSOLUTE AUTO 20.45 K/mm3 (1.96-9.15); NEUTROPHILS PERCENT AUTO 93 % (41-73); Platelet Count 386 K/mm3 (150-400); RDW Coefficient Variation 18.4 % (11.7-14.2); RDW Standard Deviation 52.2 fL (35.1-46.3); Red Blood Cell Count 4.72 M/mm3 (3.80-5.20); White Blood Cell Count 22.02 K/mm3 (4.00-11.30)
[2021-02-01 08:26] LABS: Albumin/Globulin Ratio 0.7 (0.8-1.8); Bilirubin, Total 0.4 mg/dL (0.1-1.0); Bun/Creatinine Ratio 14.6 (12.0-20.0); Calcium, Blood 7.9 mg/dL (8.5-10.1); Creatinine, Blood 2.33 mg/dL (0.40-1.00); Globulin, Blood 4.2 g/dL (2.2-4.0); Potassium, Blood 4.8 mmol/L (3.5-5.5); Total Protein, Blood 7.2 g/dL (6.4-8.2)
--- NOTE | 2021-02-01 17:09 | NUR ---
SHIFT SUMMARY NO ACUTE CHANGES T/O SHIFT, PT RESTED WELL, STATES SHE WAS EXHAUSETED FROM BEING IN THE ED ALL NIGHT. DENIES ANY DISTRESS OR WITHDRAWAL SYMPTOMS FROM HER BUPRENORPHINE. UA COLLECTED AND SENT TO LAB. MED REC AND HX COMPLETED FOR ADMIT. A&Ox4 THIS SHIFT AND ABLE TO AMBULATE WELL c 1 ASSIST TO BATHROOM. CONTINUES TO HAVE LOOSE STOOL. IMODIUM PROVIDED PER EMAR. DIET ADVANCED TO CLEAR LIQUID. CURRENTLY VISITING c , CALL LIGHT WITHIN REACH.
[2021-02-01 17:16] LABS: Source, Urine Clean Catch
[2021-02-01 17:24] LABS: Appearance, Urine Hazy (Clear); Bilirubin, Urine Neg (Neg); Blood, Urine 3+ (Neg); Color, Urine Yellow (P-Yellow); Glucose Qualitative, Urine 1+ (Neg); Ketones, Urine Neg (Neg); Leukocyte Esterase, Urine 2+ (Neg); Nitrite, Urine Neg (Neg); Protein, Urine 2+ (Neg); Specific Gravity, Urine 1.025 (1.003-1.022); Urobilinogen, Urine NORM (Normal)
[2021-02-01 17:35] LABS: Granular Casts 0-2 /lpf (0)
[2021-02-01 17:36] LABS: Bacteria Many /hpf; Red Blood Cells, Urine 0-2 /hpf (0-2); Squamous Epithelial Cells Mod /hpf (Few)
[2021-02-01 17:37] LABS: U Amphetamine Screen Not Detected; U Barbituate Screen Not Detected; U Benzodiazapine Screen Not Detected; U Buprenorphine Screen DETECTED; U Cannabinoids Screen Not Detected; U Cocaine Screen Not Detected; U Methadone Screen Not Detected; U Methamphetamine Screen Not Detected; U Opiates Screen Not Detected; U Oxycodone Screen Not Detected; U Phencyclidine Screen Not Detected; U Propoxyphene Screen Not Detected
--- NOTE | 2021-02-01 23:14 | NUR ---
CALL TO HOSPITALIST / SINUS TACH / TEMP 100.4 SINUS TACH IN THE 130'S FOR THE LAST HOUR PER TELE INSURANCE VERIFIER. TEMP 100.4 AFTER TYLENOL. SPOKE W/ HOSPITALIST MARJORIE JONES. NEW ORDER FOR NS 1L X 1 BAG.
--- NOTE | 2021-02-02 01:59 | NUR ---
CALL TO HOSPITALIST / SINUS TACH PT HR CONTINUES 130'S DESPITE FLUIDS. PT IS ASYMPTOMATIC, SLEEPING. WHEN AWAKE, STATES SHE FEELS FINE. DENIES CP AND SOB. SPOKE W/ DR. MAR. NEW ORDER TO BOLUS 500MLS NOW THEN CONT FLUIDS AT 150/HR. AIM FOR HR 110'S TO 120'S.
--- NOTE | 2021-02-02 04:18 | NUR ---
SHIFT SUMMARY: VSS. TEMP 99.3 THIS AM. HR 120'S SINCE BOLUS, INCREASES TO 130 W/ ACTIVITY. NS INFUSING AT 150/HR PER ORDER. PT SOB W/EXERTION. WEARING 02 1L VIA NC AT HS. SATS REMAIN >95%. INTERMITTENT WHEEZY, HACKING COUGH, PRODUCING SMALL AMTS OF THICK, GUEVARA SPUTUM PER PT. RHONCHI AUSCULTATED BILATERALLY. SEVERAL EPISODES OF PINK LIQUID STOOLS. ABD DISTENDED, NON-TENDER- PT STATES ABD APPEARS SMALLER COMPARED TO YESTERDAY. IMODIUM GIVEN X 1 SO FAR TONIGHT. SLEEPING INTERMITTENTLY THROUGH THE NIGHT. WCTM.
[2021-02-02 05:09] LABS: Hematocrit 33.1 % (33.0-51.0); Hemoglobin 10.7 g/dL (11.5-16.0); Mean Corpuscular HGB 25.3 pg (26.0-34.0); Mean Corpuscular HGB Conc 32.3 g/dL (31.5-36.5); Mean Corpuscular Volume 78 fL (80-100); Mean Platelet Volume 9.4 fL (9.1-12.4); Platelet Count 355 K/mm3 (150-400); RDW Coefficient Variation 18.6 % (11.7-14.2); RDW Standard Deviation 52.1 fL (35.1-46.3); Red Blood Cell Count 4.23 M/mm3 (3.80-5.20); White Blood Cell Count 10.64 K/mm3 (4.00-11.30)
[2021-02-02 05:45] LABS: BAND PERCENT MAN 8 % (0-8); BASOPHILS PERCENT MAN 1 % (0-2); EOSINOPHILS PERCENT MAN 0 % (0-6); LYMPHOCYTES ABSOLUTE MAN 0.21 K/mm3 (0.84-5.20); LYMPHOCYTES PERCENT MAN 2 % (21-46); MONOCYTES ABSOLUTE MAN 0.21 K/mm3 (0.16-1.47); MONOCYTES PERCENT MAN 2 % (4-13); SEG NEUTROPHILS PERCENT MAN 87 % (41-73); TOTAL CELLS COUNTED 100
[2021-02-02 06:00] LABS: Anion Gap 8 mmol/L (6-16); Blood Urea Nitrogen 25 mg/dL (8-24); Bun/Creatinine Ratio 30.2 (12.0-20.0); CO2, Blood 19 mmol/L (21-32); Calcium, Blood 7.8 mg/dL (8.5-10.1); Chloride, Blood 102 mmol/L (98-108); Creatinine, Blood 0.83 mg/dL (0.40-1.00); Glomerular Filtration Rate >60 (60-); Glucose, Blood 258 mg/dL (70-99); Sodium, Blood 129 mmol/L (136-145)
[2021-02-02 12:59] LABS: Percent Saturation 4.2 % (15.0-50.0)
--- NOTE | 2021-02-02 16:01 | NUR ---
PT DISCHARGED @ APPROX 1550 VIA WHEELCHAIR BY SCRUB WOMAN. WAITING BY PATIENT ENTRANCE FOR PT. DISCHARGE INSTRUCTIONS REVIEWED WITH PT, NO CARSON MEDICATIONS NEEDING TO BE FAXED. IV REMOVED, SITE APPEARED WNL. PT EDUCATED REGARDING PROPER FLUID INTAKE AND FULL LIQUID DIET FOR FIRST 24 HOURS OF DISCHARGE. LOUANN ALSO DISCUSSED THESE TEACHINGS PRIOR TO PLACING DISCHARGE ORDERS.
== END 2021-02-02 16:00 | disposition home or self-care (01) ==
LOC: ER 23:35 → MEDS 23:37 → ER 02-01 04:08 → MEDS 02-01 04:08
PROVIDERS: Emergency Medicine; Family Medicine; ADMIT Internal Medicine
DX: N17.9 Acute kidney failure, unspecified (principal); E11.22 Type 2 diabetes mellitus with diabetic chronic kidney disease; I12.9 Hypertensive chronic kidney disease with stage 1 through stage 4 chronic kidney disease, or unspecified chronic kidney disease; N18.9 Chronic kidney disease, unspecified; K21.9 Gastro-esophageal reflux disease without esophagitis; E78.5 Hyperlipidemia, unspecified; E87.1 Hypo-osmolality and hyponatremia; F11.90 Opioid use, unspecified, uncomplicated; K52.9 Noninfective gastroenteritis and colitis, unspecified; J44.9 Chronic obstructive pulmonary disease, unspecified; E66.01 Morbid (severe) obesity due to excess calories; F17.210 Nicotine dependence, cigarettes, uncomplicated; Z79.82 Long term (current) use of aspirin; Z79.4 Long term (current) use of insulin; Z86.73 Personal history of transient ischemic attack (TIA), and cerebral infarction without residual deficits; Z68.38 Body mass index [BMI] 38.0-38.9, adult
CPT/HCPCS: 0097U; 36415; 74176; 80048; 80053; 81001; 82728; 82947; 83540; 83550; 83605; 83690; 83880; 85025; 87040; 87077; 87086; 87186; 93005; 93010; 94640; 94760; 96365; 96372; 96375; 99285-25; A9270; G0378; J0694; J1650; J2405; J2916; J3010; J7030

== ENCOUNTER 2021-05-13 12:43 | Inpatient (IN) | payer OTHER ==
[~2021-05-13] VITALS: Ht 160 cm; Wt 104.3 kg
[2021-05-13 13:28] LABS: BASOPHILS ABSOLUTE AUTO 0.02 K/mm3 (0.00-0.23); BASOPHILS PERCENT AUTO 0 % (0-2); EOSINOPHILS ABSOLUTE AUTO 0.04 K/mm3 (0.00-0.68); EOSINOPHILS PERCENT AUTO 1 % (0-6); Hematocrit 32.1 % (33.0-51.0); Hemoglobin 9.9 g/dL (11.5-16.0); IMMATURE GRAN ABSOLUTE AUTO 0.02 K/mm3 (0.00-0.10); IMMATURE GRAN PERCENT AUTO 0 % (0-1); LYMPHOCYTES ABSOLUTE AUTO 0.56 K/mm3 (0.84-5.20); LYMPHOCYTES PERCENT AUTO 10 % (21-46); MONOCYTES ABSOLUTE AUTO 0.35 K/mm3 (0.16-1.47); MONOCYTES PERCENT AUTO 7 % (4-13); Mean Corpuscular HGB 22.6 pg (26.0-34.0); Mean Corpuscular HGB Conc 30.8 g/dL (31.5-36.5); Mean Corpuscular Volume 73 fL (80-100); Mean Platelet Volume 9.2 fL (9.1-12.4); NEUTROPHILS ABSOLUTE AUTO 4.38 K/mm3 (1.96-9.15); NEUTROPHILS PERCENT AUTO 82 % (41-73); Platelet Count 403 K/mm3 (150-400); RDW Standard Deviation 47.7 fL (35.1-46.3); Red Blood Cell Count 4.38 M/mm3 (3.80-5.20); White Blood Cell Count 5.37 K/mm3 (4.00-11.30)
[2021-05-13 13:48] LABS: Alanine Aminotransfer (ALT/SGP 22 U/L (12-78); Albumin/Globulin Ratio 0.7 (0.8-1.8); Alk Phos 145 U/L (50-136); Anion Gap 5 mmol/L (6-16); Aspartate Aminotrans (AST/SGOT 19 U/L (12-37); Bilirubin, Total 0.5 mg/dL (0.1-1.0); Blood Urea Nitrogen 7 mg/dL (8-24); CO2, Blood 29 mmol/L (21-32); Calcium, Blood 8.5 mg/dL (8.5-10.1); Chloride, Blood 91 mmol/L (98-108); Globulin, Blood 4.1 g/dL (2.2-4.0); Glomerular Filtration Rate >60 (60-); Glucose, Blood 264 mg/dL (70-99); Potassium, Blood 4.3 mmol/L (3.5-5.5); Sodium, Blood 125 mmol/L (136-145); Total Protein, Blood 7.1 g/dL (6.4-8.2)
[2021-05-13 13:57] LABS: Source, Urine Catheter
[2021-05-13 14:07] LABS: Appearance, Urine Clear (Clear); Bilirubin, Urine Neg (Neg); Blood, Urine Neg (Neg); Glucose Qualitative, Urine 4+ (Neg); Ketones, Urine 1+ (Neg); Leukocyte Esterase, Urine Neg (Neg); Nitrite, Urine Neg (Neg); Protein, Urine 1+ (Neg); Urobilinogen, Urine NORM (Normal)
[2021-05-13] MEDS ORDERED: ADVAIR HFA 230-28 GM INH (14:25)
[2021-05-13] MEDS ORDERED: BUPRENORP-NALO1 EAC3 SL (14:25)
[2021-05-13] MEDS ORDERED: DULOXETINE HCL60 M1 PO (14:26)
[2021-05-13] MEDS ORDERED: NEURONTIN300 MG PO (14:26)
[2021-05-13] MEDS ORDERED: Prinivil10 MG PO (14:26)
[2021-05-13] MEDS ORDERED: OMEP20ER PO (14:27)
[2021-05-13] MEDS ORDERED: METOPROLOL SUCC25 MG PO (14:27)
[2021-05-13] MEDS ORDERED: LIPITOR80 MG PO (14:27)
[2021-05-13] MEDS ORDERED: TRAZ50 PO (14:28)
[2021-05-13 14:39] LABS: SARS-Cov-2 (COVID-19) PCR, MMC NEGATIVE (NEGATIVE)
[2021-05-13 14:40] LABS: International Normalized Ratio 0.99; Prothrombin Time Results 10.7 Sec (9.7-11.5)
[2021-05-13 14:42] LABS: Color, Urine Pale Yellow (P-Yellow)
[2021-05-13] MEDS ORDERED: HUMULIN R100 UNIT/2 SC (18:29)
--- NOTE | 2021-05-13 21:56 | NUR ---
TUAN WRAPPED AROUND IV SITE FOR PROTECTION.
--- NOTE | 2021-05-14 01:36 | NUR ---
PT BEGAN COUGHING DURING REPOSITIONING, WAS DEEP SUCTIONED WITH YANKAUR, PRODUCING A MODERATE AMOUNT OF WHITE MUCOUS. PT WAS USING HER LEFT HAND TO DRAW SHEET UP TO HER CHEST DURING THIS EPISODE. AIRWAY CLEARED WITH SUCTIONING, BREATHING BECAME EASIER AND LESS LABORED.
--- NOTE | 2021-05-14 02:06 | NUR ---
PT SUCTIONED AGAIN, AND ORAL CARE PROVIDED, USING ALEXANDER SUCTION SWAB KIT. PT HAD WHITE, DRIED SECRETIONS IN HER ORAL CAVITY WHICH WERE REMOVED. MODERATE AMOUNT OF WHITE, FOAMY SECTRETIONS SUCTIONED FROM PT OROPHARYNX.
--- NOTE | 2021-05-14 03:08 | NUR ---
ORAL SUCTIONING DONE FOR THICK, WHITE SECRETIONS. ORAL CARE DONE WITH SWAB AND ORAL MOISTURIZER. PT WITH LEFT EYE OPEN, RIGHT EYE PARTIALLY OPEN. MOVES LEFT LEG AND LEFT ARM ONLY. BED IN LOW, LOCKED POSITION, CALL LIGHT IN REACH.
--- NOTE | 2021-05-14 04:03 | NUR ---
PTSUCTIONED. SMALL AMOUNT OF WHITISH SECRETIONS PRODUCED
--- NOTE | 2021-05-14 05:09 | NUR ---
PT SUCTIONED AND GIVEN ORAL CARE. MODERATE AMOUNT OF WHITE SPUTUM PRODUCED.
--- NOTE | 2021-05-14 05:57 | NUR ---
PT WITH INCREASING SECRETIONS AND TEMPS IN THE 90'S. RX'S WITH 650MG TYLENOL SUPPOSITORY. ATTEMPTED TO COMMUNICATE WITH PT THROUGH THE NIGHT BY ASKING FOR EYELID BLINKS OF BLINK ONCE FOR YES/TWO FOR NO WITHOUT ANY PURPOSFUL REACTION. FREQUENT ORAL SUCTIONING DONE ALONG WITH ORAL CARE. BED IN LOW, LOCKED POSITION, CALL LIGHT IN REACH.
[2021-05-14 06:24] LABS: BASOPHILS ABSOLUTE AUTO 0.02 K/mm3 (0.00-0.23); BASOPHILS PERCENT AUTO 0 % (0-2); EOSINOPHILS PERCENT AUTO 0 % (0-6); Hematocrit 36.1 % (33.0-51.0); Hemoglobin 10.8 g/dL (11.5-16.0); IMMATURE GRAN ABSOLUTE AUTO 0.03 K/mm3 (0.00-0.10); IMMATURE GRAN PERCENT AUTO 0 % (0-1); LYMPHOCYTES ABSOLUTE AUTO 0.88 K/mm3 (0.84-5.20); LYMPHOCYTES PERCENT AUTO 11 % (21-46); MONOCYTES ABSOLUTE AUTO 0.49 K/mm3 (0.16-1.47); MONOCYTES PERCENT AUTO 6 % (4-13); Mean Corpuscular HGB Conc 29.9 g/dL (31.5-36.5); Mean Corpuscular Volume 74 fL (80-100); Mean Platelet Volume 9.3 fL (9.1-12.4); NEUTROPHILS ABSOLUTE AUTO 6.94 K/mm3 (1.96-9.15); NEUTROPHILS PERCENT AUTO 83 % (41-73); Platelet Count 415 K/mm3 (150-400); RDW Coefficient Variation 18.2 % (11.7-14.2); RDW Standard Deviation 47.9 fL (35.1-46.3); Red Blood Cell Count 4.91 M/mm3 (3.80-5.20); White Blood Cell Count 8.36 K/mm3 (4.00-11.30)
[2021-05-14 07:06] LABS: Anion Gap 9 mmol/L (6-16); Blood Urea Nitrogen 11 mg/dL (8-24); Bun/Creatinine Ratio 17.2 (12.0-20.0); CO2, Blood 27 mmol/L (21-32); Calcium, Blood 8.3 mg/dL (8.5-10.1); Chloride, Blood 92 mmol/L (98-108); Creatinine, Blood 0.64 mg/dL (0.40-1.00); Glomerular Filtration Rate >60 (60-); Glucose, Blood 260 mg/dL (70-99); Potassium, Blood 3.8 mmol/L (3.5-5.5); Sodium, Blood 128 mmol/L (136-145); Troponin I <0.015 ng/mL (0.000-0.040)
--- NOTE | 2021-05-14 10:14 | NUR ---
PATIENT RESTING IN BED ON RIGHT LATERAL. BOOSTED IN BED AND LIMBS ELEVATED. NO SIGNS OF AGITATION OR PAIN NOTED. PATIENT CONTINUES WITH NON VERBAL OR PHYSICAL RESPONSES. BED ALARM ON AND CALL LIGHT IN REACH. WILL CONTINUE TO MONITOR FOR CHANGES.
--- NOTE | 2021-05-14 11:26 | NUR ---
Called to review her status and care. He states before this event she was doing well. He states her heart rate never went down. She was eating and drinking well. Minimal headaches pain well controled. wants her to stay full code for now. updated on plan of care will update physician Held phone up to her ear and talked with her she opened her eys and tried to hold her head up. Advised him we will do mor of that he is begging to visit.
--- NOTE | 2021-05-14 11:34 | NUR ---
PT.ALSO DIAPHORETIC.
--- NOTE | 2021-05-14 12:07 | NUR ---
CALLED AND NOTIFIED THIS NURSE NEEDS ORDERS AND HAS CONCERNS ABOUT VS INCLUDING TACHYCARDIA AND NEEDING MEDICATIONS TO PREVENT WITHDRAWAL DUE TO PATIENTS HOME SUBOXONE USE. STATES HE IS ON WAY TO ASSESS PATIENT AND SPEAK TO NURSE IN PERSON.
--- NOTE | 2021-05-14 12:16 | NUR ---
DOWNTIME FOR GLUCOSE MONITORS. 1200 BLOOD GLUCOSE IS 305.
--- NOTE | 2021-05-14 12:39 | NUR ---
DR. DIAZ AT BEDSIDE IN PATIENTS ROOM ASSESSING PATIENT. MD STATES TO NOTIFY MD IF PATIENT STARTS TO SEEM AGITATED OR IF PULSE IS 140 BPM OR HIGHER. INFORMED PATIENT OF SUBXONE/ OPIOD HISTORY, MD WOULD LIKE TO WAIT ON STARTING IVF UNTIL TOMORROW MORNING AFTER REEVALUATION, MD INFORMED PTS WOULD LIKE PATIENT TO REMAIN FULL CODE OF RIGHT NOW. MD ALSO INFORMED OF SECRETIONS BEING SUCTIONED PERIODICALLY. WILL CONTINUE TO MONITOR CLOSELY FOR CHANGES.
--- NOTE | 2021-05-14 13:24 | NUR ---
PATIENT RESTING ON LEFT LATERAL RESPIRATIONS EVEN AND UNLABORED. PT FINISHED IN ROOM. NO SIGNS OF DISTRESS NOTED. WILL CONTINUE TO MONITOR FOR CHANGES.
--- NOTE | 2021-05-14 15:02 | NUR ---
PATIENT REPOSITIONED ON LEFT LATERAL SIDE WITH LIMBS ELEVATED. PATIENTS AT BEDSIDE WITH PATIENT. EDUCATED FAMILY ON HOW TO USE CALL LIGHT SYSTEM IF HE NEEDS TO REACH NURSE. NO SIGNS OF DISTRESS OR PAIN NOTED.
--- NOTE | 2021-05-14 16:39 | NUR ---
PATIENT WITH ESCOBAR CARE PERFORMED AND CHUCKS CHANGED. PATIENT TURNED TO RIGHT LATERAL POSITION. LIMBS ELEVATED ON PILLOWS. AT BEDSIDE. PT WITH UNLABORED RESPIRATIONS, NO SIGNS OF DISTRESS OR PAIN. OCCASIONAL PRODUCTIVE COUGH NOTED. SUCTION AT BEDSIDE. CALL LIGHT IN REACH.
--- NOTE | 2021-05-14 19:50 | NUR ---
ORAL CARE WAS DONE. LIP MOISTURE APPLIED. CALL LIGHT AT BEDSIDE. BED ALARM ON. PT. WAS ORALLY SUCTIONED FOR SMALL AMT.WHITE SECRETIONS. PT.HAS A COUGH OFF & ON. PT.SEEMS COMFORTABLE. PAS INTACT. PT.ALSO HAS LOVENOX ON EMAR FOR AM.
--- NOTE | 2021-05-14 20:16 | NUR ---
in tonight to see pt.review of plan of care and updated on her needs.
--- NOTE | 2021-05-14 23:34 | NUR ---
DR. MARTINEZ CALLED TO NOTIFY HIM OF PT.'S HR147, RR 32, SATS 94% ON 2L/NC. BP 186/84 & 172/76 & TEMP. 103.3 TYMPANIC & 102.6 AXILLARY. TYLENOL SUPPOSITORY GIVEN AT 1126. MESSAGE LEFT SINCE NO ANSWER BY . AWAITING CALL BACK FROM DR. PT. ALSO GIVEN COOL CLOTHS TO FOREHEAD & BILAT FOREARMS. PT. COUGHING & ORALLY SUCTIONED FOR SMALL AMT WHITE TO CLEAR SECRETIONS.
--- NOTE | 2021-05-15 00:02 | NUR ---
DR. MARTINEZ RETURNED CALL. ORDERS RECEIVEDFOR PORTABLE CXR IN THE MORNING, OBTAINA UA NOW FROM HER CATHETER & BLOOD CULTURES X2 NOW.
--- NOTE | 2021-05-15 00:27 | NUR ---
PT.ORALLY SUCTIONED FOR THICK WHT. SECRETIONS AFTER PT.COUGHING.
--- NOTE | 2021-05-15 00:57 | NUR ---
UA WAS COLLECTED VIA LIM CATH PORT. SPECIMAN TAKEN TO LAB.
--- NOTE | 2021-05-15 01:08 | NUR ---
PT. ORALLY SUCTIONED FOR SMALL AMT WHT. SECRETIONS. PT.GRABS WITH HER LEFT HAND TO NOT BE SUCTIONED. PT. MOUTH MOISTURIZED WITH TOOTHETTE, LIP MOISTURE APPLIED TO LIPS.
[2021-05-15 03:11] LABS: Source, Urine Catheter
[2021-05-15 03:14] LABS: Appearance, Urine Hazy (Clear); Bilirubin, Urine Neg (Neg); Blood, Urine 5+ (Neg); Color, Urine Yellow (P-Yellow); Glucose Qualitative, Urine 4+ (Neg); Ketones, Urine 4+ (Neg); Leukocyte Esterase, Urine 3+ (Neg); Nitrite, Urine Neg (Neg); Protein, Urine 2+ (Neg); Specific Gravity, Urine 1.015 (1.003-1.022); Urobilinogen, Urine NORM (Normal)
[2021-05-15 03:20] LABS: Amorphous Mod (0-Heavy); Bacteria Many /hpf; Red Blood Cells, Urine 0-2 /hpf (0-2); Squamous Epithelial Cells Few /hpf (Few); White Blood Cells, Urine 50-100 /hpf (0-5)
--- NOTE | 2021-05-15 03:38 | NUR ---
RECEIVED RESULTS BACK FROM , CALLED, RECEIVED MESSAGE MACHINE, READ RESULTS TO OVER PHONE IN MESSAGE. WILL AWAIT TO RETURN CALL BACK.
--- NOTE | 2021-05-15 03:50 | NUR ---
[address] CALL BACK FROM DR. MAGALLANES. ORDERS GIVEN FOR ROCHEPHIN 1 GRAM DAILY, FIRST DOSE NOW. NOTIFIED OF PT. ALLERGIES, PER OK TO GIVEN ROCHEPHIN.
--- NOTE | 2021-05-15 05:25 | NUR ---
IV FLUSHED AFTER IV ROCHEPHIN COMPLETED.
--- NOTE | 2021-05-15 05:27 | NUR ---
PT. REPOSITIONED EVERY 2 HOURS WT ORAL CARE BEING DONE. PT. WITH LIM CATH INTACT. PT. ELEVATED TEMP. 103.3 & HR ABOVE 140'S, DR. MAGALLANES NOTIFIED & ORDERS WERE GIVEN FOR UA VIA LIM CATHETER, BLOOD CULTURES X2 & PORTABLE CHEST XRAY FOR MORNING. UA CAME BACK & WAS NOTIFIED OF RESULTS, ORDERS GIVEN FOR ROCHEPHIN WITH OK FROM TO GIVE BECAUSE OF HER LISTED ALLERGIES, ROCHEPHIN WAS GIVEN. WAS NOTIFIED A FEW HOURS AFTER SHIFT CHANGE AROUND 2100 ABOUT PT. STATUS. WILL PASS ON TO DAYS TO UPDATE ABOUT ELEVATED TEMP. DURING NIGHT. CBG'S DONE EVERY 6 HOURS WITH S/S COVERAGE PER ORDERS. PT. COUGHING OFF & ON WITH PT. BEING SUCTIONED ORALLY FOR SMALL AMT. WHT.TO CLEAR SECRETIONS. PT. REMAINS FLACCID ON RIGHT SIDE WITH MOVING LEFT ARM & GRABBING FOR YAUNKAUR WHEN BEING SUCTIONED. PT.ALSO ABLE TO MOVE LEFT LEG AT TIMES. PT. OPENS LEFT EYE WITH RIGHT EYE BEING SLIGHTLY CLOSED. PT. DOES NOT FOLLOW COMMANDS. PT. ALSO BECAME DIAPHORETIC WHEN SHE HAD AN ELEVATED TEMP, TYLENOL SUPPOSITORY WAS GIVEN PER ORDER WITH TEMP COMING DOWN TO 99.5.
--- NOTE | 2021-05-15 06:47 | NUR ---
PT. WITH WET SOUNDING COUGH. PT. SUCTIONED FOR SMALL AMT. CLEAR SECRETIONS.
[2021-05-15 08:48] LABS: BASOPHILS ABSOLUTE AUTO 0.02 K/mm3 (0.00-0.23); BASOPHILS PERCENT AUTO 0 % (0-2); EOSINOPHILS PERCENT AUTO 0 % (0-6); Hematocrit 39.3 % (33.0-51.0); Hemoglobin 11.9 g/dL (11.5-16.0); IMMATURE GRAN ABSOLUTE AUTO 0.05 K/mm3 (0.00-0.10); IMMATURE GRAN PERCENT AUTO 0 % (0-1); LYMPHOCYTES ABSOLUTE AUTO 0.77 K/mm3 (0.84-5.20); LYMPHOCYTES PERCENT AUTO 7 % (21-46); MONOCYTES ABSOLUTE AUTO 0.63 K/mm3 (0.16-1.47); MONOCYTES PERCENT AUTO 5 % (4-13); Mean Corpuscular HGB 22.4 pg (26.0-34.0); Mean Corpuscular HGB Conc 30.3 g/dL (31.5-36.5); Mean Corpuscular Volume 74 fL (80-100); Mean Platelet Volume 9.6 fL (9.1-12.4); NEUTROPHILS ABSOLUTE AUTO 10.22 K/mm3 (1.96-9.15); NEUTROPHILS PERCENT AUTO 87 % (41-73); Platelet Count 453 K/mm3 (150-400); RDW Coefficient Variation 18.4 % (11.7-14.2); RDW Standard Deviation 48.3 fL (35.1-46.3); Red Blood Cell Count 5.32 M/mm3 (3.80-5.20); White Blood Cell Count 11.69 K/mm3 (4.00-11.30)
[2021-05-15 09:07] LABS: Anion Gap 11 mmol/L (6-16); Blood Urea Nitrogen 20 mg/dL (8-24); Bun/Creatinine Ratio 28.8 (12.0-20.0); CO2, Blood 25 mmol/L (21-32); Calcium, Blood 9.2 mg/dL (8.5-10.1); Chloride, Blood 99 mmol/L (98-108); Glomerular Filtration Rate >60 (60-); Glucose, Blood 293 mg/dL (70-99); Potassium, Blood 3.4 mmol/L (3.5-5.5); Sodium, Blood 135 mmol/L (136-145)
[2021-05-15 09:49] LABS: Osmolality, Serum 308 mos/KG (275-300)
[2021-05-15 10:53] LABS: Osmolality, Urine 708 mos/kg (15-1400)
[2021-05-15 10:56] LABS: Sodium, Urine, Random <5 mmol/L (20-110)
--- NOTE | 2021-05-15 12:31 | NUR ---
CALL PLACED TO CONFIRM CONTINUATION OF NPO STATUS AND NO IV FLUIDS. CONFIRMED BY DR. DIAZ.
--- NOTE | 2021-05-15 16:58 | NUR ---
Pt resting in bed with her eyes opened upon arrival. Pt's Nikhil is at bedside. Pt's repiratory rate slightly increased and sounds slightly wet. Pt does not track with her eyes and does not respond to verbal stimuli at the time of this RN's visit. Engaged in therapeutic listening and provided update to Nikihl. Gentle education regarding planning for the future. Continued therapeutic listening and answered questions. Spoke with Pt's Primary RN Madelin and discussed case. Palliative Care will remain available.
--- NOTE | 2021-05-15 17:02 | NUR ---
PATIENT HAS BEEN TURNED EVERY TWO HOURS TODAY. THERE IS A RED SPOT ON HER RIGHT THIGH, QUARTER-SIZED. IT IS DRY AND NOT OPEN. SHE SEEMS AWARE BUT IS NOT RESPONSIVE, DOES NOT COMMUNICATE. SHE WAS MEDICATED TWICE TODAY BASED ON ELEVATED HEART RATE AND RESPIRATIONS AND SHE HAS APPEARED TO SLEEP AT INTERVALS. OT AND PT HERE, ALSO PALLIATIVE CARE WAS HERE WHILE WAS HERE VISITIG. (CONFIRMING IF VISITATION STATUS IS APPROVED.)
--- NOTE | 2021-05-15 22:11 | NUR ---
PT. WITH SORE ON RIGHT THIGH, D&I. ALSO FEW SCABS THAT ARE DRIED SCATTERED ON HER BODY. PT. IS TURNED FREQUENTLY.
--- NOTE | 2021-05-15 22:25 | NUR ---
ORAL CARE DONE AT 2041, SWABBED MOUTH WITH TOOTHETTE & APPLIED LIP MOISTURIZER. 2224 PT. COUGHING, ORALLY SUCTIONED, NO SECRETIONS PRESENT.
--- NOTE | 2021-05-15 23:54 | NUR ---
DR. MAGALLANES NOTIFIED OF PT.'S CBG OF 352, PER CONTINUE WITH S/S. ALSO NOTIFIED OF PT.'S VITALS, BP 171/80, HR 143, RR 24, SATS 93% ON 2L/NC, & TEMP.100.7. PER VERBALIZATION "JUST WATCH FOR NOW & CONTINUE WITH S/S. PT. WAS REPOSITONED TO HER BACK & A COOL WASH CLOTH WAS PLACED ON HER FOREHEAD. ORAL CARE WAS DONE & LIP MOISTURIZER APPLIED.
--- NOTE | 2021-05-16 01:26 | NUR ---
PT. WITH HR 151, SATS 96% ON 2L/NC RR 32. PT. WITH TEMP EARLIER AT 100.7. PT. WITH GRIMACE/FROWN ON FACE, PT. MEDICATED WITH 2MG IV MORPHINE PER ORDER. PT. WITH EYES OPEN SINCE JUST BEFORE MIDNIGHT. PT. IS NON VERBAL.
--- NOTE | 2021-05-16 02:22 | NUR ---
PT. HR NOW 139 WITH SATS 96% ON 2L/NC. PT. NOW WITH EYES CLOSED OFF & ON. LATE ENTRY, PT.'S DAUGHTER DID CALL EARLIER CHECKING ON PT., DAUGHTER WAS UPDATED ON PT. & INFORMED THAT WE HAD JUST CHECKED HER BLO0D SUGAR & GIVEN HER SOME INSULIN. PT.'S DAUGHTER WAS ALSO INFORMED SHE COULD CALL AT ANY TIME.
--- NOTE | 2021-05-16 03:05 | NUR ---
MA OBSERVED PT. WITH IV OUT. SITE WRAPPED WITH GAUZE & COBAN. IV RESTARTED IN LEFT OUTER FOREARM, FLUSHED WITH 10ML NACL & WRAPPED WITH COBAN. PT. MOVES LEFT ARM OFF & ON. ATTEMPT X1 IN LFA BY ORSC.CML.
--- NOTE | 2021-05-16 03:15 | NUR ---
PT. COUGHING. PT. ORALLY SUCTIONED FOR SCANT AMT. OF CLEAR SECRETIONS. PT.ORAL CARE DONE WITH TOOTHETTE & LIP MOISTURIZER APPLIED. CALL LIGHT IS WITHIN REACH.
--- NOTE | 2021-05-16 05:15 | NUR ---
PT. HR BACK UP TO 149. PT. TEMP 100.4. SATS 95% ON 2L/NC.
--- NOTE | 2021-05-16 05:52 | NUR ---
PT. WITH ELEVATED CBG OF [address] MAGALLANES WAS NOTIFIED BY S/S ORDER. ALSO NOTIFIED THAT HR WAS 143 & TEMP. 100.7. PER T.O. VERBALIZATION, GIVE 10UNITS S/S & "JUST WATCH FOR NOW.". PT. WITH COARSE LUNG SOUNDS WITH INSP. SQUEAK ON LEFT ANTERIOR LUNG. PT. OPENS EYES TO WHEN TALKING TO HER. PT. IS NONVERBAL. PT. UNABLE TO FOLLOW COMMANDS BUT DOES MOVE HER LEFT ARM & LEFT LEG AT TIMES. PT. IS FLACCID ON THE RIGHT. PT. WITH LIM CATH INTACT. PT. REPOSITIONED & ORAL CARE DONE OFTEN T.O. NIGHT. IV WAS RESTARTED SINCE IV CN WAS HARD TO FLUSH. THEN IV WAS PULLED OUT BY PT. MOVING ARM. IV WAS RESTARTED AGAIN IN LFA. PT. WAS MEDICATED WITH MORPHINE X2 T.O. NOC. PT. HR DID COME DOWN AFTER FIRST DOSE OF MORPHINE, PT. JUST MEDICATED AGAIN THIS AM, PT. WITH HR 148. PT.WITH MOIST WET COUGH OFF & ON T.O. NIGHT WITH PT. BEING ORALLY SUCTIONED FOR NONE TO LITTLE CLEAR SECRETIONS. WAS HERE VISTING WITH PT. DURING THE EVENING. DAUGHTER ALSO CALLED DURING THE NIGHT TO CHECK UP PT.
[2021-05-16 13:54] LABS: BASOPHILS ABSOLUTE AUTO 0.02 K/mm3 (0.00-0.23); BASOPHILS PERCENT AUTO 0 % (0-2); EOSINOPHILS PERCENT AUTO 0 % (0-6); Hemoglobin 12.6 g/dL (11.5-16.0); IMMATURE GRAN PERCENT AUTO 1 % (0-1); LYMPHOCYTES ABSOLUTE AUTO 0.83 K/mm3 (0.84-5.20); LYMPHOCYTES PERCENT AUTO 5 % (21-46); MONOCYTES ABSOLUTE AUTO 0.91 K/mm3 (0.16-1.47); MONOCYTES PERCENT AUTO 5 % (4-13); Mean Corpuscular HGB 22.4 pg (26.0-34.0); Mean Corpuscular Volume 75 fL (80-100); Mean Platelet Volume 9.8 fL (9.1-12.4); NEUTROPHILS ABSOLUTE AUTO 15.61 K/mm3 (1.96-9.15); NEUTROPHILS PERCENT AUTO 89 % (41-73); Platelet Count 492 K/mm3 (150-400); RDW Coefficient Variation 19.2 % (11.7-14.2); RDW Standard Deviation 50.1 fL (35.1-46.3); Red Blood Cell Count 5.63 M/mm3 (3.80-5.20); White Blood Cell Count 17.47 K/mm3 (4.00-11.30)
[2021-05-16 14:13] LABS: Bun/Creatinine Ratio 41.7 (12.0-20.0); Creatinine, Blood 1.03 mg/dL (0.40-1.00); Potassium, Blood 3.3 mmol/L (3.5-5.5)
--- NOTE | 2021-05-16 16:34 | NUR ---
1130 DR DIAZ HERE TO SEE PT, MADE AWARE THAT PTS HR 150'S, RESP 34 AND DIAPHORETIC AT TIMES. ORDERED MORPHINE TO BE GIVEN Q2 HOURS PRN INSTEAD OF Q4 HOURS PRN. ALSO ORDERED ATIVAN 0.5MG IV TO BE GIVEN PRIOR TO MRI. DR DIAZ CALLED PTS AND DISCUSSED CODE STATUS AND PROGNOSIS WITH PTS . 1150 DR DIAZ MADE AWARE OF PTS BLOOD GLUCOSE OF 378 AND THAT PT HAS SLIDING SCALE ORDERS THAT ONLY COVER BS OF 349, ORDERED TO GIVE DOSE THAT COVERS 349. 8 UNITS OF INSULIN GIVEN INSTRUCTED. 1210 PTS RUIZ HERE AT PTS BEDSIDE. 1235 TRANSPORT TO MRI VIA STRECHER , ATIVAN 0.5MG GIVEN PRIOR TO PROCEDURE PER ORDERS. PT TRANSFERRED WITH PORTABLE O2 AND PULSE OXIMETRY. PTS O2 SAT 95% ON 2L N/C. 1600 PTS HEART RATE UP TO 160'S , RESP 45, DIAPHORETIC WITH LABORED RESPIRATIONS. DR DIAZ MADE AWARE OF PT STATUS, METOPROLOL 5 MG IV ORDERED. [address] DIAZ AND REQUESTED FOR PT TO BE TRANSFERRED TO PCU FOR ADDITIONAL CARDIAC MONITORING. AGREED, ORDERS PLACED. 1640 RANDOLPH DUGGAN,RN GAVE VERBAL OVER THE PHONE REPORT TO RECEIVING NURSE, MARIO. 1648 PT TRANSFERRED TO PCU VIA PT BED WITH ASSIST OF X3 RN'S, PORTABLE HEART MONITOR, BP AND O2 SAT APPLIED TO PT FOR TRANSFER.
--- NOTE | 2021-05-16 19:16 | NUR ---
SHIFT SUMMARY PT WAS TRANSFERRED ON PCU UNIT WITH SINUS TACHY, NON-VERBAL DIAPHORETIC, LETHARGIC; KUSSMAL RESPIRATIONS HR:140,RR 45; TEMP 100.2. PT WAS SUCTIONED AND PLACED ON COMFORT MEASURES. PT RECEIVEDD 3 DROPS OF ATROPINE AND 10 MG OF MORPHINE R @ 1800. PT RECIEVED SCOPOLAMINE PATCH AT ~6:45 PM. PT IS WITH AND DAUGHTER IN HER ROOM.
--- NOTE | 2021-05-16 19:23 | NUR ---
pt transitioned to comfort care will continue to support family.
--- NOTE | 2021-05-16 20:22 | NUR ---
PT REPOSITIONED AT THIS TIME. PAIN MEDICATION PROVIDED, ORAL CARE COMPLETE. FAMILY WAS AT THE BEDSIDE BUT STEPPED OUTSIDE DURING CARE FOR A BREAK. PT IS NOT VERBALLY RESPONSIVE, HER EYES ARE OPEN & SHE WAS ABLE TO MOVE HER LEFT ARM DURING REPOSITIONING. CALL LIGHT IN REACH. WCTM AT THIS TIME.
--- NOTE | 2021-05-17 07:40 | NUR ---
FINAL DISCHARGE PT PRONOUNCED AT 0613. PT'S AT THE BEDSIDE AT THE TIME OF PASSING. IV & CATHETER REMOVED, PT REPOSITIONED, ORAL CARE PROVIDED. CHARGE NURSE NOTIFIED. WILL REMAIN AT THE BEDSIDE UNTIL HOME ARRIVES. NIGHT PERSONAL INVESTMENT ADVISER TO MAKE ARRANGEMENTS.
== END 2021-05-17 13:18 | DRG 65 ==
LOC: ER 12:43 → ERHOLD 17:26 → ORSCIP 18:37 → SURS 05-16 16:54
PROVIDERS: Emergency Medicine; Internal Medicine; ADMIT Student in an Organized Health Care Education/Training Program
DX: I63.512 Cerebral infarction due to unspecified occlusion or stenosis of left middle cerebral artery (principal); G93.49 Other encephalopathy; Z68.41 Body mass index [BMI] 40.0-44.9, adult; E23.2 Diabetes insipidus; F11.23 Opioid dependence with withdrawal; Z20.822 Contact with and (suspected) exposure to COVID-19; Z51.5 Encounter for palliative care; N18.30 Chronic kidney disease, stage 3 unspecified; E11.22 Type 2 diabetes mellitus with diabetic chronic kidney disease; K21.9 Gastro-esophageal reflux disease without esophagitis; R29.810 Facial weakness; F41.8 Other specified anxiety disorders; I12.9 Hypertensive chronic kidney disease with stage 1 through stage 4 chronic kidney disease, or unspecified chronic kidney disease; I27.20 Pulmonary hypertension, unspecified; I25.10 Atherosclerotic heart disease of native coronary artery without angina pectoris; J84.10 Pulmonary fibrosis, unspecified; M54.5 Low back pain; G89.29 Other chronic pain; M79.7 Fibromyalgia; R35.8 Other polyuria; J44.9 Chronic obstructive pulmonary disease, unspecified; F17.210 Nicotine dependence, cigarettes, uncomplicated; E66.01 Morbid (severe) obesity due to excess calories; R29.705 NIHSS score 5; E78.5 Hyperlipidemia, unspecified; Z86.74 Personal history of sudden cardiac arrest; Z90.89 Acquired absence of other organs; Z90.49 Acquired absence of other specified parts of digestive tract; Z98.51 Tubal ligation status; Z90.710 Acquired absence of both cervix and uterus; Z88.0 Allergy status to penicillin; Z88.1 Allergy status to other antibiotic agents; Z88.2 Allergy status to sulfonamides; Z88.3 Allergy status to other anti-infective agents; Z79.4 Long term (current) use of insulin; Z79.02 Long term (current) use of antithrombotics/antiplatelets; Z79.51 Long term (current) use of inhaled steroids; Z79.899 Other long term (current) drug therapy
CPT/HCPCS: 36415; 51702; 70450; 70496; 70498; 70551; 71045; 80048; 80053; 81001; 82947; 83036; 83721; 83930; 83935; 84300; 84484; 85025; 85610; 85730; 87040; 93005; 93010; 99285-25; A9270; C8929; J0696; J1650; J2060; J2270; J3010; Q3014; Q9957; Q9967; U0004